=== PATIENT | female | born 1980 | race Caucasian/White ===

== ENCOUNTER 2017-02-12 18:37 | Emergency (ER) | payer BC ==
[~2017-02-12] VITALS: Ht 165.1 cm; Wt 59.0 kg
[2017-02-12 18:37] VITALS: BP_SYST 140
--- NOTE | 2017-02-12 18:37 | NUR ---
BROUGHT IN BY [facility], PLACED IN HALLWAY, TRIAGED AND REPORT GIVEN TO NURSE
--- NOTE | 2017-02-12 20:23 | NUR ---
Moved pt to bed 8
--- NOTE | 2017-02-12 20:29 | NUR ---
Patient AAO x4, sitting in bed, c/o lower left quadrant abd pain x 1 day. Patient states pain is "a cramping like sensation". Denies N/V/D, denies shortness of breath, no acute distress noted. Will continue to monitor.
--- NOTE | 2017-02-12 20:30 | NUR ---
CINTHYA Alexander at bedside examining patient.
[2017-02-12] MEDS ORDERED: NACL 0.9% 1,000 ML IV ONE (20:37)
[2017-02-12 21:24] LABS: BASOPHILS # (AUTO) 0.1 K/uL (0.0-0.2); BASOPHILS % (AUTO) 0.5 % (0.0-2.0); EOSINOPHILS # (AUTO) 0.1 K/uL (0.0-0.4); EOSINOPHILS % (AUTO) 0.5 % (0.0-4.0); HEMATOCRIT 42.9 % (36-48); HEMOGLOBIN 14.6 g/dL (12.0-16.0); LYMPHOCYTES # (AUTO) 1.7 K/uL (1.0-5.5); LYMPHOCYTES % (AUTO) 12.1 % (20.5-51.5); MEAN CORPUSCULAR HEMOGLOBIN 32 pg (27-31); MEAN CORPUSCULAR HGB CONC 34 % (32-36); MEAN CORPUSCULAR VOLUME 96 fL (79.0-98.0); MONOCYTES # (AUTO) 0.9 K/uL (0.0-1.0); MONOCYTES % (AUTO) 6.7 % (1.7-9.3); NEUTROPHILS # (AUTO) 11.1 K/uL (1.8-7.7); NEUTROPHILS % (AUTO) 80.2 % (40.0-70.0); PLATELET COUNT (AUTO) 231 K/uL (130-430); RED BLOOD CELL COUNT(AUTO) 4.49 MIL/uL (4.2-6.2); RED CELL DISTRIBUTION WIDTH 10.9 % (9.0-15.0); WHITE BLOOD COUNT (AUTO) 13.9 K/uL (4.8-10.8)
[2017-02-12] MEDS ORDERED: KETOROLAC TROMETHAMINE 30 MG VIAL IVP ONE (21:30)
[2017-02-12 21:36] LABS: PROTHROMBIN TIME 10.6 SECS (9.5-12.5)
[2017-02-12 21:44] LABS: CALCIUM 9.2 mg/dL (8.4-11.0); CREATININE 0.84 mg/dL (0.55-1.30); POTASSIUM 3.5 mmol/L (3.5-5.1)
[2017-02-12 21:48] LABS: ALBUMIN 3.7 g/dL (3.4-4.8); TOTAL BILIRUBIN 0.8 mg/dL (0.0-1.0)
--- NOTE | 2017-02-12 22:44 | NUR ---
Patient to CT via wheelchair. Patient states she's ok to wait for pain med until she gets back from CT.
[2017-02-12] MEDS ORDERED: traMADol HCL HCL 50 MG TABLET (ULTRAM) PO ONE (22:45)
--- NOTE | 2017-02-12 23:00 | NUR ---
Patient resting quietly. No acute distress noted. Vital signs within normal range.
[2017-02-13] MEDS ORDERED: CIPROFLOXACIN HCL 500 MG TABLET PO ONE (00:30)
[2017-02-13] MEDS ORDERED: metroNIDAZOLE 500 MG TABLET PO ONE (00:30)
[2017-02-13 01:00] VITALS: BP_SYST 130
--- NOTE | 2017-02-13 01:00 | NUR ---
Patient given written and verbal discharge instructions and verbalizes understanding. ER MD discussed with patient the results and treatment provided. Patient in stable condition. ID arm band removed. IV catheter removed intact and dressing applied, no active bleeding. Rx of Tramadol, Zofran,Cipro, Flagyl given. Patient educated on pain management and to follow up with PMD. Pain Scale 0/10 . Opportunity for questions provided and answered.
== END 2017-02-13 01:00 | disposition home or self-care (01) ==
LOC: SED 18:37
DX: K52.9 Noninfective gastroenteritis and colitis, unspecified (principal); R03.0 Elevated blood-pressure reading, without diagnosis of hypertension
CPT/HCPCS: 36415; 74176; 76830; 76857; 80053; 81025; 83690; 84703; 85025; 85610; 85730; 96361; 96374; 99285; J1885; J7030

== ENCOUNTER 2022-09-10 02:20 | Emergency (ER) | payer BC, OTHER ==
[~2022-09-10] VITALS: Ht 165.1 cm; Wt 63.5 kg
[2022-09-10 02:28] VITALS: BP_SYST 140
--- NOTE | 2022-09-10 02:28 | NUR ---
Patient triaged and placed in ED room 7. Patient placed in bed with safety precautions in place and connected to monitor. ER MD notified of need for MSE.
--- NOTE | 2022-09-10 02:29 | NUR ---
Patient to ER bed, triage to gown for evaluation. Report given to ENRIQUE Last; assuming care of patient at this time.
--- NOTE | 2022-09-10 02:31 | NUR ---
ER MD Allison at bedside examining patient.
--- NOTE | 2022-09-10 02:40 | NUR ---
FIRST CONTACT WITH PT. ASSESSMENT COMPLETED. SEE INTERVENTIONS.
[2022-09-10] MEDS ORDERED: NACL 0.9% 1,000 ML IV ONE (02:45)
[2022-09-10] MEDS ORDERED: KETOROLAC TROMETHAMINE 15 MG VIAL IVP ONE (02:45)
[2022-09-10 03:17] LABS: BILIRUBIN,URINE 2+ (NEGATIVE); BLOOD, URINE 2+ (NEGATIVE); COLOR,URINE YELLOW (YELLOW); GLUCOSE,URINE NEGATIVE (NEGATIVE); KETONES,URINE 3+ (NEGATIVE); LEUKOCYTE ESTERASE ,URINE NEGATIVE (NEGATIVE); NITRITE, URINE NEGATIVE (NEGATIVE); PH,URINE 5.5 (5.0-8.0); PROTEIN URINE NEGATIVE (NEGATIVE); UROBILINOGEN,URINE 0.2 (0.2-1.0)
[2022-09-10 03:19] LABS: BASOPHILS # (AUTO) 0.1 K/uL (0.0-0.2); BASOPHILS % (AUTO) 0.7 % (0.0-2.0); EOSINOPHILS % (AUTO) 0.1 % (0.0-4.0); HEMATOCRIT 43.9 % (36-48); HEMOGLOBIN 15.1 g/dL (12.0-16.0); LYMPHOCYTES # (AUTO) 0.6 K/uL (1.0-5.5); LYMPHOCYTES % (AUTO) 7.2 % (20.5-51.5); MEAN CORPUSCULAR HEMOGLOBIN 36 pg (27-31); MEAN CORPUSCULAR HGB CONC 34 % (32-36); MEAN CORPUSCULAR VOLUME 104 fL (79.0-98.0); MONOCYTES # (AUTO) 0.5 K/uL (0.0-1.0); NEUTROPHILS # (AUTO) 6.7 K/uL (1.8-7.7); PLATELET COUNT (AUTO) 198 K/uL (130-430); RED BLOOD CELL COUNT(AUTO) 4.21 MIL/uL (4.2-6.2); RED CELL DISTRIBUTION WIDTH 13.1 % (9.0-15.0); WHITE BLOOD COUNT (AUTO) 7.7 K/uL (4.8-10.8)
[2022-09-10] MEDS ORDERED: MORPHINE 4 MG INJ. 4 MG/ML VIAL IVP ONE (03:30)
[2022-09-10 03:52] LABS: CREATININE 0.9 mg/dL (0.55-1.30)
[2022-09-10 03:56] LABS: TOTAL BILIRUBIN 1.3 mg/dL (0.0-1.0)
[2022-09-10 03:58] LABS: CLARITY/URINE HAZY (CLEAR)
[2022-09-10 03:59] LABS: BACTERIA,URINE None Seen /HPF (None Seen); WBC,URINE 0-3 /HPF (0-3)
[2022-09-10] MEDS ORDERED: ONDANSETRON HCL 4 MG/2 ML VIAL IVP ONE (04:15)
[2022-09-10] MEDS ORDERED: IBUP-1969 PO (05:26)
[2022-09-10] MEDS ORDERED: ONDA-8 TL (05:26)
[2022-09-10 05:42] VITALS: BP_SYST 127
--- NOTE | 2022-09-10 05:44 | NUR ---
Patient given written and verbal discharge instructions and verbalizes understanding. ER MD discussed with patient the results and treatment provided. Patient in stable condition. ID arm band removed. IV catheter removed intact and dressing applied, no active bleeding. Rx of IBUPROPHEN AND ZOFRAN given. Patient educated on pain management and to follow up with PMD. Pain Scale ZERO. Opportunity for questions provided and answered. Medication side effect fact sheet provided.
== END 2022-09-10 05:41 | disposition home or self-care (01) ==
LOC: SED 02:20
DX: R10.13 Epigastric pain (principal); E88.89 Other specified metabolic disorders; Z79.899 Other long term (current) drug therapy
CPT/HCPCS: 99285; 74176; 96374; 96361; 96375; 80053; 81000; 83690; 85025; 36415; 76376; 81025; J1885; J2270; J7030

== ENCOUNTER 2023-10-23 20:46 | Emergency (ER) | payer OTHER ==
[~2023-10-23] VITALS: Ht 165.1 cm; Wt 72.6 kg
[~2023-10-23 20:46] MED LIST: IBUP-1969 PO; ONDA-8 TL
[2023-10-23 21:00] VITALS: BP_SYST 153; PULSE 86; RESP 20; TEMP 98; O2SAT 94
[2023-10-23 23:10] VITALS: BP_SYST 142; PULSE 83; RESP 18; TEMP 98.1; O2SAT 96
== END 2023-10-23 23:10 | disposition home or self-care (01) ==
LOC: SED 20:46
DX: S00.12XA Contusion of left eyelid and periocular area, initial encounter (principal); S00.11XA Contusion of right eyelid and periocular area, initial encounter; Z79.899 Other long term (current) drug therapy; Z79.2 Long term (current) use of antibiotics; W19.XXXA Unspecified fall, initial encounter; Y93.89 Activity, other specified; Y92.89 Other specified places as the place of occurrence of the external cause; Y99.8 Other external cause status
CPT/HCPCS: 70486; 81025; 99284